=== PATIENT | male | born 1970 | race African-American/Black ===

== ENCOUNTER 2017-02-13 14:43 | Emergency (ER) | payer MEDICAID ==
[~2017-02-13] VITALS: Ht 162.6 cm; Wt 86.0 kg
[~2017-02-13 14:43] MED LIST: LISINOPRIL; METOPROLOL
[2017-02-13] MEDS ORDERED: HYDROCODONE/ACETAMINOPHEN 5/325MG TABLET PO ONE (18:15)
[2017-02-13] MEDS ORDERED: LISINOPRIL 2.5MG TABLET PO ONE (19:30)
[2017-02-13 22:10] VITALS: BP 168/103
== END 2017-02-13 22:22 | disposition home or self-care (01) ==
LOC: ER 15:34
DX: S20.212A Contusion of left front wall of thorax, initial encounter (principal); I10 Essential (primary) hypertension; F17.210 Nicotine dependence, cigarettes, uncomplicated; F12.10 Cannabis abuse, uncomplicated; E78.00 Pure hypercholesterolemia, unspecified; V43.62XA Car passenger injured in collision with other type car in traffic accident, initial encounter; Y93.89 Activity, other specified; Y92.488 Other paved roadways as the place of occurrence of the external cause
CPT/HCPCS: 71010; 93005; 99284; Z7610

== ENCOUNTER 2017-03-15 21:13 | Emergency (ER) | payer MEDICAID ==
[~2017-03-15] VITALS: Ht 165.1 cm; Wt 99.0 kg
[2017-03-15] MEDS ORDERED: ONDANSETRON HCL 4MG/2ML VIAL IV STA (23:50)
[2017-03-15] MEDS ORDERED: KETOROLAC 30MG/ML VIAL IV STA (23:50)
[2017-03-16] MEDS ORDERED: ASPIRIN 81MG TABLET PO ONE
[2017-03-16 00:17] LABS: EOSINOPHILS % 5.1 % (0.0-5.0); HEMATOCRIT. 46.3 % (42.0-52.0); HEMOGLOBIN. 15.5 g/dL (14.0-18.0); LYMPHOCYTES % 12.7 % (20.0-50.0); MEAN CORPUSCULAR HEMOGLOBIN 28.4 pg (28.0-32.0); MEAN CORPUSCULAR VOLUME 84.6 fL (80.0-94.0); MEAN PLATELET VOLUME 9.4 fl (7.4-10.4); MONOCYTES % 12.6 % (2.0-8.0); NEUTROPHILS % 66.6 % (40.0-76.0); PLATELET 118 x1000/uL (130-400); RED BLOOD CELL COUNT 5.47 mill/uL (4.7-6.1); RED CELL DISTRIBUTION WIDTH 14.6 % (11.6-14.6)
[2017-03-16 00:35] LABS: CARBON DIOXIDE 27 mEq/L (21-32); CHLORIDE 104 mEq/L (98-107); TROPONIN I 0.04 ng/mL (0.00-0.04)
[2017-03-16 05:36] VITALS: BP 128/88
== END 2017-03-16 05:35 | disposition home or self-care (01) ==
LOC: ER 21:43
DX: M25.512 Pain in left shoulder (principal); R07.89 Other chest pain; F17.200 Nicotine dependence, unspecified, uncomplicated; F12.10 Cannabis abuse, uncomplicated; Z95.2 Presence of prosthetic heart valve; Z79.82 Long term (current) use of aspirin
CPT/HCPCS: 36415; 71010; 73030; 80053; 83880; 84484; 85025; 93005; 96374; 96375; 99285; Z7610; J1885; J2405

== ENCOUNTER 2019-04-14 09:54 | Inpatient (IN) | payer MEDICAID ==
[~2019-04-14] VITALS: Ht 162.6 cm; Wt 80.9 kg
[~2019-04-14 09:54] MED LIST changes: +ASPI-1497 MT; +ATOR20TA65 MT; +HYDR25TA MT; -LISINOPRIL; +METH4TAB17 MT; -METOPROLOL
[2019-04-14] MEDS ORDERED: FUROSEMIDE 40MG/4ML VIAL IV ONE (12:00)
[2019-04-14] MEDS ORDERED: NITROGLYCERIN 0.4MG TABLET SL SL PRN (12:00)
[2019-04-14] MEDS ORDERED: ASPIRIN 81MG TABLET PO ONE (12:00)
[2019-04-14 12:14] LABS: BASOPHILS % 1.2 % (0.0-2.0); EOSINOPHILS % 1.6 % (0.0-5.0); HEMATOCRIT. 46.8 % (42.0-52.0); HEMOGLOBIN. 15.7 g/dL (14.0-18.0); LYMPHOCYTES % 11.6 % (20.0-50.0); MEAN CORPUSCULAR HEMOGLOBIN 29.7 pg (28.0-32.0); MEAN CORPUSCULAR VOLUME 88.3 fL (80.0-94.0); MEAN PLATELET VOLUME 9.2 fl (7.4-10.4); MONOCYTES % 14.1 % (2.0-8.0); NEUTROPHILS % 71.5 % (40.0-76.0); PLATELET 111 x1000/uL (130-400); RED CELL DISTRIBUTION WIDTH 14.6 % (11.6-14.6)
[2019-04-14 12:24] LABS: CHLORIDE 106 mEq/L (98-107)
[2019-04-14] MEDS ORDERED: NITROGLYCERIN 0.1MG/HR PATCH TOP ONE (12:30)
[2019-04-14 12:31] LABS: ETHANOL BLOOD < 10 mg/dL
[2019-04-14] MEDS ORDERED: CARVEDILOL 3.125 MG TABLET PO ONE (13:15)
[2019-04-14 13:51] LABS: *AMPHETAMINES SCREEN URINE NEGATIVE (NEGATIVE); *BARBITURATES SCREEN URINE NEGATIVE (NEGATIVE); *BENZODIAZEPINES SCREEN URINE NEGATIVE (NEGATIVE); *COCAINE SCREEN URINE NEGATIVE (NEGATIVE); METHADONE URINE SCREEN NEGATIVE (NEGATIVE); OPIATES URINE SCREEN NEGATIVE (NEGATIVE); PHENCYCLIDINE URINE SCREEN NEGATIVE (NEGATIVE)
[2019-04-14 13:52] LABS: CANNABINOID URINE SCREEN PRESUMTIVE POSITIVE (NEGATIVE)
[2019-04-14] MEDS ORDERED: FUROSEMIDE 40MG/4ML VIAL IVP ONE (15:30)
[2019-04-14] MEDS ORDERED: ONDANSETRON HCL 4MG/2ML INJ IV PRN (17:15)
[2019-04-14] MEDS ORDERED: CLONIDINE 0.1MG TABLET PO PRN (17:15)
[2019-04-14] MEDS ORDERED: ACETAMINOPHEN 325MG TABLET PO PRN (17:15)
[2019-04-14] MEDS: DILTIAZEM HCL 60MG TABLET PO SCH (19:51)
[2019-04-14] MEDS: ENOXAPARIN 80MG/0.8ML SYR SUBCUT SCH (20:27)
[2019-04-15] VITALS (18 sets, daily range): BP systolic 115–168; BP diastolic 77–121
[2019-04-15] MEDS ORDERED: HYDRALAZINE 20MG/ML VIAL IV PRN (05:45)
[2019-04-15] MEDS: DILTIAZEM HCL 60MG TABLET PO SCH ×2 (06:02→12:50)
[2019-04-15] MEDS: FUROSEMIDE 40MG/4ML VIAL IVP SCH (07:59)
[2019-04-15] MEDS: ENOXAPARIN 80MG/0.8ML SYR SUBCUT SCH (08:00)
[2019-04-15 09:56] LABS: HEMATOCRIT. 52.5 % (42.0-52.0); HEMOGLOBIN. 17.6 g/dL (14.0-18.0); MEAN CORPUSCULAR HEMOGLOBIN 29.6 pg (28.0-32.0); MEAN CORPUSCULAR VOLUME 88.2 fL (80.0-94.0); PLATELET 117 x1000/uL (130-400); RED BLOOD CELL COUNT 5.95 mill/uL (4.7-6.1); RED CELL DISTRIBUTION WIDTH 14.2 % (11.6-14.6)
[2019-04-15 10:11] LABS: CHLORIDE 102 mEq/L (98-107)
[2019-04-15] MEDS ORDERED: IPRATROPIUM BROMIDE (0.02%) 0.5MG/2.5ML NEB HHN PRN (11:30)
[2019-04-15] MEDS ORDERED: LOSARTAN POTASSIUM 50 MG TABLET PO SCH (12:00)
[2019-04-15 13:37] LABS: HEPATITIS B SURFACE ANTIGEN NEGATIVE
[2019-04-15 14:02] LABS: PLATELET ESTIMATE SLIGHTLY DECREASED
[2019-04-15 14:06] LABS: HEPATITIS A AB IGM NEGATIVE (NEGATIVE)
[2019-04-15] MEDS: AMIODARONE HCL 200 MG TABLET PO SCH ×2 (15:42→20:38)
[2019-04-15] MEDS: METOPROLOL TARTRATE 25MG TABLET PO SCH ×2 (16:43→20:38)
[2019-04-15] MEDS ORDERED: RIVAROXABAN 20 MG TABLET PO SCH (17:20)
[2019-04-15] MEDS: DILTIAZEM HCL 90MG TABLET PO SCH ×2 (17:37→23:38)
[2019-04-15 18:12] LABS: CREATINE KINASE MB FRACTION 2.2 ng/mL (0.5-3.6)
[2019-04-16] VITALS (14 sets, daily range): BP systolic 65–136; BP diastolic 85–120
[2019-04-16] MEDS: DILTIAZEM HCL 90MG TABLET PO SCH (06:23)
[2019-04-16 07:35] LABS: INR 1.3; PROTHROMBIN TIME 13.7 sec (9.6-11.0)
[2019-04-16] MEDS ORDERED: POTASSIUM CHLORIDE 20MEQ TABLET SR PO NR (08:15)
[2019-04-16] MEDS: FUROSEMIDE 40MG/4ML VIAL IVP SCH (09:00)
[2019-04-16] MEDS: AMIODARONE HCL 200 MG TABLET PO SCH (09:23)
[2019-04-16] MEDS: METOPROLOL TARTRATE 25MG TABLET PO SCH (09:23)
[2019-04-16 09:53] LABS: CHLORIDE 101 mEq/L (98-107)
[2019-04-16] MEDS ORDERED: DILTIAZEM HCL 300MG CAPSULE SR 24HR PO SCH (11:15)
== END 2019-04-16 15:30 | disposition home or self-care (01) | DRG 201 ==
LOC: ER 09:54 → 3WST 15:47 → EDBEDREQ 15:54 → EDBEDREQTM 19:33 → EDBEDREQSVC 19:33 → ENRESERV 04-15 00:43
PROVIDERS: ADMIT Internal Medicine; ATTEND Internal Medicine
DX: I48.92 Unspecified atrial flutter (principal); Z95.1 Presence of aortocoronary bypass graft; I50.9 Heart failure, unspecified; I11.0 Hypertensive heart disease with heart failure; Z95.2 Presence of prosthetic heart valve; I48.91 Unspecified atrial fibrillation; F12.90 Cannabis use, unspecified, uncomplicated; R74.0 Nonspecific elevation of levels of transaminase and lactic acid dehydrogenase [LDH]; J45.909 Unspecified asthma, uncomplicated; I16.0 Hypertensive urgency; F10.10 Alcohol abuse, uncomplicated; J44.9 Chronic obstructive pulmonary disease, unspecified; Z87.891 Personal history of nicotine dependence; Z91.14 Patient's other noncompliance with medication regimen; Z91.19 Patient's noncompliance with other medical treatment and regimen; Z79.899 Other long term (current) drug therapy
CPT/HCPCS: 36415; 71045; 80048; 80053; 80305; 80320; 82550; 82553; 83735; 83880; 84443; 84484; 85025; 86705; 86709; 86803; 87340; 93005; 93306; 96374; 96375; 96376; 99291; J0360; J1650; J1940; G0480

== ENCOUNTER 2023-11-14 14:23 | Emergency (ER) | payer MEDICAID ==
[~2023-11-14] VITALS: Ht 177.8 cm; Wt 85.0 kg
[~2023-11-14 14:23] MED LIST changes: +AMLO10TA80 MT; +APIX5TAB MT; -ASPI-1497 MT; +FURO-151 MT; -HYDR25TA MT; +LOSA-415 PO; -METH4TAB17 MT; +METO-396 MT; +SPIR25TA PO
[2023-11-14 14:32] VITALS: TEMP 98.2; O2SAT 99
[2023-11-14] MEDS: TETRACAINE 0.5% OPHTH DROPS 4ML RIGHTEYE ONE (14:45)
[2023-11-14] MEDS: FLUORESCEIN SODIUM 1MG/STRIP RIGHTEYE ONE (14:45)
[2023-11-14] MEDS ORDERED: OCUFLX EACHEYE (15:34)
[2023-11-14 15:48] VITALS: BP 112/68; PULSE 70; RESP 15
== END 2023-11-14 16:18 | disposition home or self-care (01) ==
LOC: ER 14:27
DX: S00.212A Abrasion of left eyelid and periocular area, initial encounter (principal); S00.211A Abrasion of right eyelid and periocular area, initial encounter; F12.10 Cannabis abuse, uncomplicated; I10 Essential (primary) hypertension; J45.909 Unspecified asthma, uncomplicated; Z79.899 Other long term (current) drug therapy; Z98.890 Other specified postprocedural states; X58.XXXA Exposure to other specified factors, initial encounter; Y93.9 Activity, unspecified; Y92.89 Other specified places as the place of occurrence of the external cause; Y99.8 Other external cause status
CPT/HCPCS: 99283